=== PATIENT | female | born 1990 | race Caucasian/White ===

== ENCOUNTER → 2023-11-26 11:34 | Outpatient (CLI) | payer OTHER, SELFPAY ==
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
== END ==
LOC: RAD 11:46
PROVIDERS: Referring Provider Physician Assistant; Visit Provider Physician Assistant
DX: S43.429A Sprain of unspecified rotator cuff capsule, initial encounter (principal)
CPT/HCPCS: 73030